=== PATIENT | male | born 1990 | race Caucasian/White ===

== ENCOUNTER 2019-04-08 16:20 | Emergency (ER) | payer MEDICAID ==
[~2019-04-08] VITALS: Ht 185.4 cm; Wt 104.3 kg
[2019-04-08 17:01] VITALS: Ht 185.4 cm; Wt 104.3 kg
[2019-04-08 19:35] VITALS: BP 144/79
== END 2019-04-08 19:35 | disposition home or self-care (01) ==
LOC: ED 16:20
DX: S61.411A Laceration without foreign body of right hand, initial encounter (principal); I10 Essential (primary) hypertension; Z88.8 Allergy status to other drugs, medicaments and biological substances; W20.8XXA Other cause of strike by thrown, projected or falling object, initial encounter; Y93.B1 Activity, exercise machines primarily for muscle strengthening; Y92.39 Other specified sports and athletic area as the place of occurrence of the external cause; Y99.8 Other external cause status
CPT/HCPCS: 90715; A4570; J2001; Q0092

== ENCOUNTER 2019-04-19 10:30 | Emergency (ER) | payer MEDICAID ==
[~2019-04-19] VITALS: Ht 185.4 cm; Wt 107.5 kg
[2019-04-19 10:41] VITALS: Ht 185.4 cm; Wt 107.5 kg
[2019-04-19 13:10] VITALS: BP 115/73
== END 2019-04-19 12:45 | disposition home or self-care (01) ==
LOC: ED 10:30
DX: T81.33XD Disruption of traumatic injury wound repair, subsequent encounter (principal); R21 Rash and other nonspecific skin eruption; I10 Essential (primary) hypertension; Z88.1 Allergy status to other antibiotic agents; Z88.8 Allergy status to other drugs, medicaments and biological substances; Y92.89 Other specified places as the place of occurrence of the external cause